=== PATIENT | male | born 1945 | race Caucasian/White ===

== ENCOUNTER 2017-08-19 09:05 | Emergency (ER) | payer MEDICARE, BC ==
[2017-08-19 09:10] VITALS: BP 161/81
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
== END 2017-08-19 10:45 | disposition home or self-care (01) ==
LOC: LL.ED 09:05
DX: M54.42 Lumbago with sciatica, left side (principal); M15.0 Primary generalized (osteo)arthritis; K21.9 Gastro-esophageal reflux disease without esophagitis; E89.0 Postprocedural hypothyroidism; I25.810 Atherosclerosis of coronary artery bypass graft(s) without angina pectoris; J43.1 Panlobular emphysema; E78.2 Mixed hyperlipidemia; I10 Essential (primary) hypertension; E11.9 Type 2 diabetes mellitus without complications; E66.9 Obesity, unspecified; Z79.899 Other long term (current) drug therapy; Z79.4 Long term (current) use of insulin
CPT/HCPCS: 72100; 96372; 99284; J3360; 99283